=== PATIENT | male | born 1980 | race African-American/Black ===

== ENCOUNTER 2024-05-07 20:40 | Emergency (ER) | payer MEDICAID, OTHER ==
[~2024-05-07] VITALS: Ht 170.2 cm; Wt 90.7 kg
[2024-05-07 21:55] VITALS: BP 130/88; TEMP 98.1; O2SAT 96
== END 2024-05-07 23:24 | disposition home or self-care (01) ==
LOC: ER 21:36
DX: R05.9 Cough, unspecified (principal); Z59.00 Homelessness unspecified
CPT/HCPCS: 71045-TC